=== PATIENT | male | born 1955 | race Caucasian/White ===

== ENCOUNTER 2018-05-09 07:41 | Outpatient (CLI) | payer OTHER ==
[2018-05-09 08:58] LABS: ALT (SGPT) 35 U/L (8-55); AST (SGOT) 97 U/L (5-34); Alkaline Phosphatase 106 U/L (40-150); Anion Gap 14 mmol/L (10-20); BUN (Urea Nitrogen) 8 mg/dL (8.4-25.7); Bilirubin, Total 2.4 mg/dL (0.2-1.2); Calc. Creatinine Clearance 0 mL/min (70-130); Calcium 9.1 mg/dL (7.8-10.44); Carbon Dioxide 27 mmol/L (23-31); Cardiac Risk 5.9 (Less than 4.5); Chloride 104 mmol/L (98-107); Cholesterol 213 mg/dl (< 200 Desired); Estimated GFR-MDRD Greater than 90; Globulin 3.8 g/dL (2.4-3.5); Glucose 112 mg/dL (80-115); HDL Cholesterol 36 mg/dL (>60 Neg Risk); LDL Cholesterol, Calculated 149 mg/dL; Potassium 3.6 mmol/L (3.5-5.1); Protein, Total 7.8 g/dL (5.8-8.1); Sodium 141 mmol/L (136-145); Triglycerides 142 mg/dL (Less than 150)
--- NOTE | 2018-05-09 09:15 | ULT ---
CAROTID ULTRASOUND WITH MAC SCALE AND DOPPLER DUPLEX COLOR FLOW IMAGING SPECTRAL ANALYSIS PERFORMED: CLINICAL INDICATION: Visual disturbance. FINDINGS: There is mild scattered atherosclerotic calcification of the carotid arteries. PEAK SYSTOLIC VELOCITY (CM/S): Right CCA 108 Left CCA 105 Right ICA 94 Left ICA 109 There is antegrade flow within the visualized bilateral vertebral arteries. Asymmetric elevation of t he left ECA velocity is noted, at 161cm/s. IMPRESSION: 1. No hemodynamically significant stenosis of the right internal carotid artery. 2. No hemodynamically significant stenosis of the left internal carotid artery. POS: [facility]
[2018-05-09 09:16] LABS: #Eosinphils 0.1 thou/uL (0.0-0.7); #Lymphocytes 1.4 thou/uL (1.20-3.40); #Monocytes 0.4 thou/uL (0.11-0.59); #Neutrophils 2.3 thou/uL (1.40-6.50); %Basophils 0.9 % (0.0-1.0); %Lymphocytes 32.9 % (21.0-51.0); %Monocytes 9.9 % (0.0-10.0); %Neutrophils 54.3 % (42.0-75.0); Hemoglobin 12.7 g/dL (14.0-18.0); Mean Corpuscular Hemoglobin 31.5 pg (27.0-31.0); Mean Corpuscular Volume 92.8 fL (78.0-98.0); PLT Morphology Comment Appears Decreased; Platelet Count 58 thou/uL (130-400); RBC Distribution Width 12.3 % (11.5-14.5); RBC Morphology Normal; Red Blood Cell (RBC) Count 4.04 mill/uL (4.70-6.10); White Blood Cell (WBC) Count 4.2 thou/uL (4.8-10.8)
[2018-05-09 09:25] LABS: MDiff Complete? YES
[2018-05-09 09:39] LABS: Thyroid Stimulating Hormone 2.4988 uIU/mL (0.35-4.94)
[2018-05-09 12:15] LABS: Ferritin 765.03 ng/mL (22-322)
== END 2018-05-09 07:42 | disposition home or self-care (01) ==
LOC: SCSULT 07:41
PROVIDERS: ATTEND Family Medicine
DX: Z00.00 Encounter for general adult medical examination without abnormal findings (principal); H53.9 Unspecified visual disturbance
CPT/HCPCS: 36415; 80053; 80061; 82728; 84443; 85025; 85652; 93880

== ENCOUNTER 2019-12-19 14:26 | Outpatient (CLI) | payer OTHER ==
--- NOTE | 2019-12-19 15:26 | ULT ---
ULTRASOUND DOPPLER DUPLEX CAROTID: DATE: 12/19/2019 HISTORY: 64-year-old male with "clots in both eyes loss of vision" TECHNIQUE: Grayscale, color-flow, and spectral analysis, of major arteries of neck. FINDINGS: RIGHT: Atherosclerotic plaque:Mild atheromatous plaque proximal right internal carotid, including carotid bu lb. Peak systolic and end diastolic velocities: CCA:170 cm/s, 25 cm/s ICA:140 cm/s, 25 cm/s ICA/CCA ratio:0.8 Vertebral artery flow:Antegrade LEFT: Atherosclerotic plaque: Moderate focal plaque at mid or distal left common carotid. Mild calcified at heromatous plaque at proximal left internal carotid, including carotid bulb, greater than on the right side. Peak systolic and end diastolic velocities: CCA:150 cm/s, 40 cm/s ICA:120 cm/s, 25 cm/s ICA/CCA ratio:0.8 Vertebral artery flow:Antegrade IMPRESSION: 1) bilateral carotid atherosclerosis, mild at origins of bilateral internal carotids, and moderate at left common carotid. 2) estimated 50-69% stenosis of right internal carotid. 3) no evidence of left internal carotid hemodynamically significant stenosis.
== END 2019-12-19 14:27 | disposition home or self-care (01) ==
LOC: SCSULT 14:26
PROVIDERS: ATTEND Ophthalmology Retina Specialist
DX: H35.63 Retinal hemorrhage, bilateral (principal); I65.23 Occlusion and stenosis of bilateral carotid arteries
CPT/HCPCS: 93880